=== PATIENT | male | born 1950 | race Caucasian/White ===

== ENCOUNTER 2019-05-29 06:12 | Inpatient (IN) ==
[~2019-05-29 06:12] MED LIST: Total Joint Mixture (50 ml) IR ONE
--- NOTE | 2019-05-29 06:27 | History & Physical Report ---
Date of Encounter: 05/29/19 Time of Encounter: 06:27 24 Hour HP Update - Instructions Instructions: If the History and Physical is less than 30 days old and was completed prior to A.M. admission and or procedure and has NOT been updated on calendar day of procedure please complete this update prior to performing procedure. - Update Patient reports changes in Medical Condition: No Changes in examination, assessment, or condition: No Changes in Medication: No Preop tests/diagnostics Reviewed: Yes Surgery Remains Indicated: Yes Consent for Planned Operative Procedure(s) Verified: Yes - Pre-Operative Checklist Preoperative Checklist Indicated: No Prophylactic Antibiotic Ordered: Yes Is VTE Prophylaxis Indicated?: Yes
[2019-05-29] MEDS ORDERED: CeFAZolin Syr 3,000MG/30 ML 3,000 MG/30 ML SYRINGE IVPB ONE (06:35)
[2019-05-29] MEDS ORDERED: Ringers Solution, Lactated 1,000 ML IVC SCH (06:45)
[2019-05-29] MEDS ORDERED: Propofol 500 MG/50 ML INFUS..BTL ONE ×3 (07:22→10:28)
[2019-05-29] MEDS ORDERED: Lidocaine -MPF 2% 2 ML VIAL ONE (07:22)
[2019-05-29] MEDS ORDERED: *HR* Propofol 200 MG/20 ML VIAL IVP ONE ×2 (07:22→09:29)
[2019-05-29] MEDS ORDERED: Tranexamic Acid 1,000 MG/10 ML VIAL ONE ×2 (07:22)
--- NOTE | 2019-05-29 07:23 | Anesthesia Evaluation PreOp ---
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], B-TKR, R-shoulder) Alcohol Use: none Drug use: none Medications and Allergies Aspirin [Lo-Dose Aspirin EC] 81 mg PO DAILY 05/29/19 [History] Levothyroxine Sodium [Euthyrox] 200 mcg PO DAILY 05/29/19 [History] Lisinopril [Zestril] 20 mg PO DAILY 05/29/19 [History] Omeprazole [PriLOSEC] 40 mg PO DAILY 05/29/19 [History] Tamsulosin [Flomax] 0.4 mg PO DAILY 05/29/19 [History] Allergy/AdvReac Type Severity Reaction Status Date / Time No Known Allergies Allergy Verified 05/29/19 06:59 - Meds/Allergy Pre-op Review Medications Reviewed: Yes Allergies Reviewed: Yes Beta Blockers on Current Med List: No Anesthesia Results - Labs Laboratory Tests 05/24/19 05/24/19 05/24/19 11:11 11:11 11:11 WBC 6.7 Hgb 15.5 Hct 48.5 Plt Count 241 PT 11.9 INR 1.0 APTT 35.4 Sodium 140 Potassium 4.2 Chloride 109 H Carbon Dioxide 25 BUN 20 Creatinine 0.82 Est GFR ( Amer) > 60 Est GFR (Non-Af Amer) > 60 BUN/Creatinine Ratio 24 Anesthesia Exam Last Vital Signs Temp 99.0 F 05/29/19 07:07 Pulse 82 05/29/19 07:07 Resp 18 05/29/19 07:07 BP 144/88 05/29/19 07:07 Pulse Ox 94 05/29/19 07:07 Weight: 131 kg NPO (# of Hours): > 8 hrs - HEENT Pupil (Motor): Pupils equal, EOMI Mallampati: III Teeth: Missing Denture Type: Lower: Complete Oral Opening: Greater than 3 - PERFORATOR OPERATOR OIL WELL LOC: Oriented - Cardiac Rhythm: Regular Murmur: None - Pulmonary Breath Sounds: bilateral Clear Respiratory Effort: Symmetrical Anesthesia Assess/Plan ASA Score: 3 Level of consciousness: Cooperative Anesthetic Plan: Regional Nerve Block, Spinal Regional Nerve Block Plan: Adductor canal (bilateral) Monitoring Plan: Standard Monitors Recovery Plan: PACU
[2019-05-29] MEDS ORDERED: *HR* Midazolam HCl 2 MG/2 ML VIAL ONE (07:26)
[2019-05-29] MEDS ORDERED: *HR* FentaNYL (PF) 100 MCG/2 ML VIAL ONE ×2 (07:27→10:58)
[2019-05-29] MEDS ORDERED: Lidocaine -MPF 1% 5 ML AMPUL ONE (07:34)
[2019-05-29] MEDS ORDERED: ROPIVACAINE/PF/NS 0.25% 1 EACH SYRINGE INTRAART ONE (07:38)
[2019-05-29] MEDS ORDERED: Lidocaine/EPI 1:200k 1% PF 10 ML VIAL ONE (07:38)
[2019-05-29] MEDS ORDERED: *HR* OxyCODONE ER (12 HR) 10 MG TABLET PO ONE (07:39)
[2019-05-29] MEDS ORDERED: Celecoxib 100 MG CAPSULE PO ONE (07:39)
[2019-05-29] MEDS ORDERED: Gabapentin 300 MG CAPSULE PO ONE (07:40)
[2019-05-29] MEDS ORDERED: *HR* Promethazine 25 MG/ML VIAL IVP PRN ×2 (07:49→12:49)
[2019-05-29] MEDS ORDERED: *HR* OxyCODONE Immed Rel 5 MG TABLET PO PRN (07:49)
[2019-05-29] MEDS ORDERED: Ketorolac 30 MG/ML VIAL ONE (08:58)
[2019-05-29] MEDS ORDERED: *HR* PHENYLEPHRINE 1,000 MCG/10 ML SYRINGE IVP ONE ×2 (09:08→10:58)
--- NOTE | 2019-05-29 09:25 | Discharge Summary ---
<Alex Siddiqui M - Last Filed: 05/29/19 09:21> Orders not resulted at time of discharge: Pending orders 05/29/19 09:11 Culture,Anaerobic [RM] Routine Culture,Wound [RM] Routine Gram Stain [RM] Stat Date of Encounter: 05/29/19 - Hospital Course Hospital course: Mr. Parker is a 68 year old male - Time Spent with Patient Total time spent providing and/or coordinating discharge services: - Discharge Medications Prescriptions: New Docusate [Colace] 100 mg PO BID 5 Days #10 capsule Ibuprofen [Motrin] 600 mg PO Q6HR PRN 7 Days #28 tab PRN Reason: Pain Acetaminophen [Pain Relief] 500 mg PO Q6H 7 Days #28 tablet OxyCODONE Immed Rel [Roxicodone 5 MG] 5 mg PO Q6HR PRN 5 Days #20 tablet PRN Reason: Severe Pain Aspirin Enteric Coated [Aspirin EC] 325 mg PO BID 10 Days #20 tablet. Continued Levothyroxine Sodium [Euthyrox] 200 mcg PO DAILY Omeprazole [PriLOSEC] 40 mg PO DAILY Lisinopril [Zestril] 20 mg PO DAILY Tamsulosin [Flomax] 0.4 mg PO DAILY Discontinued Aspirin [Lo-Dose Aspirin EC] 81 mg PO DAILY Home Medications: Acetaminophen [Pain Relief] 500 mg PO Q6H 7 Days #28 tablet 05/29/19 [Rx] Aspirin Enteric Coated [Aspirin EC] 325 mg PO BID 10 Days #20 tablet. 05/29/19 [Rx] Docusate [Colace] 100 mg PO BID 5 Days #10 capsule 05/29/19 [Rx] Ibuprofen [Motrin] 600 mg PO Q6HR PRN 7 Days #28 tab 05/29/19 [Rx] Levothyroxine Sodium [Euthyrox] 200 mcg PO DAILY 05/29/19 [History] Lisinopril [Zestril] 20 mg PO DAILY 05/29/19 [History] Omeprazole [PriLOSEC] 40 mg PO DAILY 05/29/19 [History] OxyCODONE Immed Rel [Roxicodone 5 MG] 5 mg PO Q6HR PRN 5 Days #20 tablet 05/29/19 [Rx] Tamsulosin [Flomax] 0.4 mg PO DAILY 05/29/19 [History] Allergies/Adverse Reactions: Allergy/AdvReac Type Severity Reaction Status Date / Time No Known Allergies Allergy Verified 05/29/19 06:59 Primary care physician: Garo Moreno MD - Patient Status Disposition: Transfer Inpatient Rehab Fac Condition: Good - Discharge Instructions Follow Up With: Garo Moreno MD [Primary Care Provider] - Additional Instructions: Discharge Instructions: Total Knee Replacement Please call [facility] ([phone]), your Primary Care Physician, or report to the Emergency Room if you have any of the following symptoms: Nausea, vomiting, fever greater that 101.5, swelling, chest pain, shortness of breath, increased pain/redness/drainage/odor for your incision site, numbness/tingling, or any other concerning symptoms. ACTIVITY:Weight-bearing as tolerated. You may progress off support (crutches or walker) as tolerated. Incentive Spirometer 10 times an hour. MEDICATIONS: Upon discharge resume your home medications. Take all the medica tions as prescribed. Take a stool softener if taking narcotic pain medications. Stool softeners are only effective if you drink enough fluids. Drink 6-8 glass of water or fluids a day, unless this is not allowed for another health problem. Despite using stool softeners, if you haven't had a bowel movement in 3 days, please switch to a gentle laxative. Gentle laxatives are sold over the counter. You should have a bowel movement within 24 hours, if not call the office. You will be discharged from the hospital with a prescription for pain medication. You are encouraged to decrease the use of narcotic pain medication as tolerated. Should you require a refill, please call the office. [facility] prescribes narcotic pain medication for only 4-6 weeks after surgery. If you require pain medication beyond this time period, you may be referred to your Primary Care Physician or to the Pain Clinic for further evaluation. Plan ahead for refills on pain medication as many narcotics either need to be picked up at the office or mailed. It is best to call 48-72 hours in advance of needing a prescription refill so you don't run out of medication. To help control the post-operative pain, you may take NSAIDs (Aleve,Advil, Motrin, Ibuprofen, Naprosyn) or Tylenol as prescribed on the bottle in addition to the pain medication. ANTICOAGULATION (blood thinners): Continue your Aspirin, Lovenox or Coumadin as prescribed to help prevent a blood clot in the leg or in the lungs. As long as your incision remains dry and you tolerate the NSAIDs (Aleve, Advil, Motrin, ibuprofen, naprosyn), it is OK to use the NSAIDS while you are taking your anticoagulation medication. Should your incision start to drain, stop the NSAID and contact our office. Common symptoms of blood clot in the legs include: localized pain, swelling, calf tenderness, redness or discoloration of the skin. Blood clot in the lung symptoms include: shortness of breath, rapid pulse, sweating, and chest pain that worsens with deep breathing, coughing up blood, lightheadedness, feelings of anxiety. If you experience any of these symptoms notify your physician immediately, go to the emergency room, or if having trouble breathing, call 911. WOUND CARE: Leave the dressing on for 7 to 10days. You may change the dressing if it becomes saturated greater than 50%. Do not get the dressing wet at anytime. Wash your hands with antibacterial soap, rinse and dry prior to any wound care. If you have hal the visiting nurse or rehab facility can remove the stapes 10-14 days after surgery and place steri-strips across the wound. Leave the steri-strips in place until they fall off on their won. You may let water from the shower run on top of the steri-strips. If you do not have a visiting nurse or rehab facility, you will need to return to the office at 10-14 days for the hal to be removed. If you have itching or redness around the dressing call the office. FOLLOW-UP: Please follow up with your surgeon in the orthopedic clinic in 4 weeks from the day of surgery. If you have hal that need to be removed, you will need to come back to the office in 10-14 days from the day of surgery. 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 Priority: Primary Status: Acute (3) HTN (hypertension) Priority: Secondary Status: Chronic Qualifiers: Hypertension type: unspecified Qualified Code(s): I10 - Essential (primary) hypertension (4) History of CVA (cerebrovascular accident) Priority: Secondary Status: Chronic (5) 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 Parker is a 68 year old male status post bilateral total knee replacement. Patient had an uneventful postoperative course, received antibiotics physical therapy, patient will require inpatient stay for a period of time and rehabilitation facility. Follow-up in 1 week Time spent discussing smoking cessation with patient: 3 to 10 minutes - Time Spent with Patient Total time spent providing and/or coordinating discharge services: Date of admission: 05/29/19 12:42 Primary care physician: Garo Moreno MD Consults: 05/29/19 12:49 Consult to Nutrition [CONS] Routine Comment: Consulting Provider: NUTRITION Reason for Dietary Consult: Other Other:: Proper nutrition to facilitate wound healing Consult to Occupational Therapy [CONS] Routine Comment: Evaluate, develop and implement POC Reason for Consult: post knee surgery Does patient have active BEDREST order?: No Is patient medically & hemodynamically stable?: Yes Consult to Orthopedic Navigator [CONS] [CONS] Routine Consult to Physical Therapy [CONS] Routine Comment: Evaluate, develop and impliment POC Reason for Consult: post knee surgery Does patient have active BEDREST order?: No Is patient medically & hemodynamically stable?: Yes Consult to Quality Control Head [CONS] Routine Reason for SW Consult: post op joint replacement RT Post Op Consult [CONS] Routine Labs on day of discharge: Labs from last 24 hours 05/30/19 05/30/19 05/29/19 04:16 04:16 12:05 WBC 9.2 RBC 4.36 Hgb 12.6 L 13.2 D Hct 40.3 41.0 MCV 92.4 MCH 28.9 MCHC 31.3 L RDW 14.5 Plt Count 194 MPV 9.8 Immature Gran % 0.3 Seg Neutrophils % 75.5 Lymphocytes % 10.6 Monocytes % 12.3 Eosinophils % 0.9 Basophils % 0.4 Neutrophils # 7.0 Lymphocytes # 1.0 Monocytes # 1.1 Eosinophils # 0.1 Basophils # 0.0 Sodium 142 Potassium 4.3 Chloride 108 H Carbon Dioxide 25 BUN 24 H Creatinine 0.94 Est GFR ( Amer) > 60 Est GFR (Non-Af Amer) > 60 BUN/Creatinine Ratio 26 Glucose 126 H Calculated Osmolality 300 Calcium 8.3 L Preliminary micro results at discharge 05/29/19 10:45 Anaerobic Culture - Preliminary Right Knee Culture is incubating. 05/29/19 Unknown Anaerobic Culture - Preliminary Left Knee Culture is incubating. 05/29/19 10:45 Wound Culture - Preliminary Right Knee Culture is incubating. 05/29/19 Unknown Wound Culture - Preliminary Left Knee Culture is incubating. - Impressions ITS Impressions Knee X-Ray 05/29/19 01:00 IMPRESSION: Insertion of right knee revision arthroplasty D/ / Jason Garza MD / Jason Garza MD Interpreting Provider: Jason Garza MD - Patient Status Functional capacity at discharge: uses cane/walker <Lillie Posada E - Last Filed: 06/02/19 18:36> Orders not resulted at time of discharge: Pending orders 05/29/19 Culture,Anaerobic [RM] Routine Culture,Wound [RM] Routine Gram Stain [RM] Stat 05/29/19 10:45 Culture,Anaerobic [RM] Routine Culture,Wound [RM] Routine Gram Stain [RM] Stat 05/29/19 11:02 Surgical Pathology [PTH] Routine Date of Encounter: 06/01/19 - Discharge Diagnosis (1) 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 Priority: Primary Status: Chronic Qualifiers: Encounter type: subsequent encounter Qualified Code(s): T84.032D - Mechanical loosening of internal right knee prosthetic joint, subsequent encounter; T84.033D - Mechanical loosening of internal left knee prosthetic joint, subsequent encounter (2) 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 Priority: Primary Status: Acute (3) HTN (hypertension) Priority: Secondary Status: Chronic Qualifiers: Hypertension type: unspecified Qualified Code(s): I10 - Essential (primary) hypertension (4) History of CVA (cerebrovascular accident) Priority: Secondary Status: Chronic (5) ISSAC (obstructive sleep apnea) Priority: Secondary Status: Chronic (6) Obesity Priority: Secondary Status: Chronic Qualifiers: Obesity type: unspecified obesity type Obesity classification: unspecified obesity classification Serious obesity comorbidity presence: unspecified whether serious comorbidity present Qualified Code(s): E66.9 - Obesity, unspecified (7) Thyroid disorder Priority: Secondary Status: Chronic (8) Hypothyroidism Priority: Secondary Status: Chronic Qualifiers: Hypothyroidism type: unspecified Qualified Code(s): E03.9 - Hypothyroidism, unspecified - Hospital Course Hospital course: Mr. Parker is a 68 year old male - Time Spent with Patient Total time spent providing and/or coordinating discharge services: Date of admission: 05/29/19 12:42 Primary care physician: Garo Moreno MD Consults: 05/29/19 12:49 Consult to Nutrition [CONS] Routine Comment: Consulting Provider: NUTRITION Reason for Dietary Consult: Other Other:: Proper nutrition to facilitate wound healing Consult to Occupational Therapy [CONS] Routine Comment: Evaluate, develop and implement POC Reason for Consult: post knee surgery Does patient have active BEDREST order?: No Is patient medically & hemodynamically stable?: Yes Consult to Orthopedic Navigator [CONS] [CONS] Routine Consult to Physical Therapy [CONS] Routine Comment: Evaluate, develop and impliment POC Reason for Consult: post knee surgery Does patient have active BEDREST order?: No Is patient medically & hemodynamically stable?: Yes Consult to Quality Control Head [CONS] Routine Reason for SW Consult: post op joint replacement RT Post Op Consult [CONS] Routine Discharging clinician: Hi Randolph Anticipated date of discharge: 06/01/19 - VTE Documentation of Mechanical Device: Venous foot pump, device Labs on day of discharge: Labs from last 24 hours 05/29/19 12:05 Hgb 13.2 D Hct 41.0 Preliminary micro results at discharge 05/29/19 10:45 Wound Culture - Preliminary Right Knee Culture is incubating. 05/29/19 Unknown Wound Culture - Preliminary Left Knee Culture is incubating. - Impressions ITS Impressions Knee X-Ray 05/29/19 01:00 IMPRESSION: Insertion of right knee revision arthroplasty D/ / Jason Garza MD / Jason Garza MD Interpreting Provider: Jason Garza MD - Patient Status Functional capacity at discharge: uses cane/walker Overall status at discharge: patient is progressing back to baseline - Diet and Activity Activity: as per physical therapy Diet: advance to your usual diet
[2019-05-29] MEDS ORDERED: EPHEDrine 50 MG/ML VIAL ONE (09:39)
--- NOTE | 2019-05-29 09:41 | Anesthesia Procedures ---
Date of Encounter: 05/29/19 Time of Encounter: 08:15 Procedures: Anesthesia - Epidural/Spinal Patient ID/Chart reviewed: Yes Patient examined: Yes Consent Obtained: Yes Supplemental Oxygen: Nasal Cannula Supplemental Oxygen Rate (L/min): 2 Sedation: Versed (mg): 2 Sedation: Fentanyl (mcg): 100 Site Prep: Aseptic Technique, Sterile prep and drape, Povidone-Iodine 1% Patient position: upright Local Anesthetic: Lidocaine 1% Amount of Local Anesthetic used: 3 Interspace Used: L4-L5 Blood: No CSF: Yes (spinal ) Paresthesia: No Spinal Needle Gauge: 22 (PARAMEDIAN APPROACH WITH A 22G 5 INCH NEEDLE) Spinal Dose: BUPIVICAINE 0.5% PF -WITH EPI WASH FOR BILATERAL Vitals + FHT's: Vital Signs - Last 8 Hours Temp Pulse Resp BP Pulse Ox 05/29/19 08:40 77 15 109/62 92 05/29/19 08:37 76 15 107/73 91 05/29/19 08:23 79 15 149/100 91 05/29/19 08:11 90 15 133/100 92 05/29/19 07:07 99.0 F 82 18 144/88 94 Intake and Output 05/28/19 05/29/19 05/29/19 23:59 07:59 15:59 Other: Weight 130.635 kg Patient Weight 05/29/19 23:59 Weight 130.635 kg - Nerve Block Procedure Date: 05/29/19 Time: 08:15 Allergies/Adv Reactions: NKDA Pre-op Diagnosis: BILATERAL TOTAL KNEE ARTHRITIS ROBOTIC BIlateral Surgical Procedure: BILATERAL TOTAL KNEE ROBOTIC BILATERAL Checklist: Correct Patient Identifier, Correct procedure, History checked Blood Thinner: No Monitor Applied: EKG, BP, Pulse Oximetry Supplemental Oxygen via Nasal Cannula (L/min): 2 Sedation: Versed (mg): 2 Sedation: Fentanyl (mcg): 100 Indication: Post Op Analgesia Pre-op Neuro Deficits: No Block Type: Other (adductor canal x2) Catheter placed: No Sterile Technique: Yes Ultrasound used: Yes Anatomy identified: Yes Visual spread of Local: Yes Neuro Stimulation: No Blood on Needle Aspiration: No Smooth Injection of Local: Yes Pain with Injection of Local: No Prep: Chlorhexadine Needle: 21 x 100 mm Stimuplex Local: Ropivacaine (0.25% 20ml X2 ropi bilateral ) Volume (cc): 40 Number of Attempts: 1 Complications: None/effective block Vitals: Vital Signs - Last 8 Hours Temp Pulse Resp BP Pulse Ox 05/29/19 08:40 77 15 109/62 92 05/29/19 08:37 76 15 107/73 91 05/29/19 08:23 79 15 149/100 91 05/29/19 08:11 90 15 133/100 92 05/29/19 07:07 99.0 F 82 18 144/88 94 Intake and Output 05/28/19 05/29/19 05/29/19 23:59 07:59 15:59 Other: Weight 130.635 kg Patient Weight 05/29/19 23:59 Weight 130.635 kg
--- NOTE | 2019-05-29 11:12 | Orthopedic Operative Note ---
Date of procedure: 05/29/19 Pre-op diagnosis: Bilateral aseptic loosening total knee Post-op diagnosis: same Procedure: Procedure: Bilateral revision robotic-assisted Total knee replacement Estimated blood loss: 400 cc Hardware: Metal and polyethylene replacement. [place] Femur: Both knees 5 TS, 22 x 100 stem's Tibia: Both knees, 5, 18 x 100 stem's TS insert: Left knee 25 mm, right knee 19 mm Patella: Left knee patella not replaced, right knee 39 patella revision Exam Under anesthesia: Right knee 0 degrees of extension 5 degrees varus, left knee 0 degrees flexion extension, 1 degree varus as calculated by the robot full flexion and no instability Procedural Notes: Both knees aseptic loosening of tibial and femoral components, significantly more cement disease on the left knee as compared to the right. Operative procedure: The patient was brought to the operating room and placed on the operating room table. After spinal anesthesia was administered the operative knee was examined. Findings were noted in the exam under anesthesia. The operative extremity was prepped and draped in sterile surgical fashion. Surgery began with the left knee, the right knee any differences will be highlighted but this will be dictation for both knees. The patient received IV antibiotics prior to skin incision. A standard midline incision was made centered over the patella through the old incision. The incision was made through the skin and subcutaneous tissue. A medial parapatellar tendon approach was performed. Care was taken to preserve tissue along the medial aspect of the patella. And to protect the patella tendon. Normal joint fluid and was enc ountered in both knees, cultures and Gram stain was sent for both knees. The deep MCL was released off the medial tibia. The infra patella fat pad was excised. The patella was everted on the left knee the patella had no issues, there was some concern with the position of the patella on the right knee. For the right knee patella cut was made at the level of the insertion of the quadriceps and patella tendon along the implant, implant was removed without incident. The patella was sized the guide was seated and the lug holes are drilled. Knee was brought into flexion. Patient noted to have Steinmann pins were placed in the tibia and the femur for the tibial and femoral arrays respectively. Checkpoints were also placed in the tibia and the femur for calculation purposes. The knee including the femur and the tibial registered. Utilizing an osteotome and oscillating saw the interface between the patient's bone and component was disrupted and the femoral and tibial components were removed without significant incident, components were loose in both knees. Femoral cuts were made first with robotic assistance, these included the anterior cut posterior cuts chamfer cuts. Tibial cut was then performed with robotic assistance as well. Bone fragments were removed, as well as the medial and lateral meniscus. The size 5 femoral guide was seated box cut was made lug holes are drilled. The size 5 tibial tray was seated and prepared with the fin cutter. Trial reduction with the 25 TS on left knee 19 TS Melissa revealed extension of 0 degrees in both knees and a varus alignment 4 degrees in the left and 1 degree in the right full flexion. No varus valgus instability. Trial reduction revealed excellent patella tracking. All trial components were removed all bony surfaces were irrigated. Components were assembled on the back table after the tibia and femur reamed up to the appropriate sizes. The Tibia was seated followed by the femur, The selected Melissa size was seated and secured patella was cemented on the right knee. Patient had similar findings for motion and stability. The knee was closed by the PA. The knee was then irrigated out with 2 L of pulse irrigation. The extensor mechanism was closed with #2 FiberWire suture and #2 PDS suture. The subcutaneous tissue was then irrigated and closed deep with #1 PDS suture superficially with 0 PDS suture and skin was closed with zip tie skin hal. The patient was placed in a sterile dressing and transferred to recovery room in stable condition. Anesthesia: spinal Surgeon: Hi Randolph Was there an laundry assistant present: Yes Certified Medical Dosimetrist: Lillie Posada Estimated blood loss (cc): 400 Condition: stable Disposition: PACU
[2019-05-29 12:30] LABS: Hemoglobin 13.2 g/dL (12.9-16.9)
--- NOTE | 2019-05-29 12:30 | Anesthesia Evaluation Post Op ---
Date of Encounter: 05/29/19 Time of Encounter: 12:29 - Vital Signs Vital Signs: Last Vital Signs Temp 97.4 F L 05/29/19 12:17 Pulse 84 05/29/19 12:17 Resp 19 05/29/19 12:17 BP 105/70 05/29/19 12:17 Pulse Ox 96 05/29/19 12:17 - Lungs Lungs: Clear Ascult./Percussion - Airway Airway: Non-obstructed - Cardiovascular Regular Rate - Mental Status Mental Status: Alert & Oriented, Answers Appropriately - Pain Pain Scale: 1 - Nausea Vomiting Nausea Vomiting: Not Present - Hydration Hydration: NPO - Discharge PostOp Status: Transfer Patient to floor
[2019-05-29] MEDS ORDERED: Ondansetron 4 MG/2 ML VIAL IVP PRN (12:49)
[2019-05-29] MEDS ORDERED: HYDROcodone BIT/Homatropine 5 MG TABLET PO PRN (12:49)
[2019-05-29] MEDS ORDERED: Sennosides 8.6 MG TABLET PO PRN (12:49)
[2019-05-29] MEDS ORDERED: Temazepam 15 MG CAPSULE PO PRN (12:49)
[2019-05-29] MEDS ORDERED: Naloxone 0.4 MG/ML INJ IVP PRN (12:49)
[2019-05-29] MEDS ORDERED: MOM Conc 10 ML UD.LIQ PO PRN (12:49)
[2019-05-29] MEDS ORDERED: traMADol 50 MG TABLET PO PRN (12:49)
[2019-05-29] MEDS: *HR* OxyCODONE Immed Rel 5 MG TABLET PO PRN (13:29)
[2019-05-29] MEDS: Aspirin Enteric Coated 81 MG Tablet PO SCH (13:29)
[2019-05-29] MEDS: Lisinopril 20 MG TABLET PO SCH (13:30)
[2019-05-29] MEDS: ceFAZolin sodium 3,000 MG in 0.9 % Sodium Chloride 100 ML IVPB SCH (17:08)
[2019-05-29] MEDS: Gabapentin 300 MG CAPSULE PO SCH ×2 (17:09→22:04)
[2019-05-29] MEDS: Ascorbic Acid 500 MG TABLET PO SCH (17:10)
[2019-05-29] MEDS: *HR* Enoxaparin 30 MG/0.3 ML SYRINGE SQ SCH (17:12)
[2019-05-29] MEDS ORDERED: *HR* Enoxaparin 30 MG/0.3 ML SYRINGE SQ SCH (18:00)
[2019-05-30] MEDS: ceFAZolin sodium 3,000 MG in 0.9 % Sodium Chloride 100 ML IVPB SCH (01:40)
[2019-05-30 04:57] LABS: Basophils % 0.4 %; Eosinophils # 0.1 K/mcL (0.0-0.6); Eosinophils % 0.9 %; Hematocrit 40.3 % (37.5-50.1); Hemoglobin 12.6 g/dL (12.9-16.9); Immature Granulocytes % 0.3 % (0-4); Lymphocytes % 10.6 %; Mean Corpuscular HGB Conc 31.3 g/dL (31.6-35.5); Mean Corpuscular Hemoglobin 28.9 pg (28.0-33.3); Mean Corpuscular Volume 92.4 fL (83.0-100.0); Mean Platelet Volume 9.8 fL (9.4-12.4); Monocytes # 1.1 K/mcL (0.0-1.3); Monocytes % 12.3 %; Platelet Count 194 K/mcL (140-400); Red Blood Count 4.36 M/mcL (4.19-5.50); Red Cell Distribution Width 14.5 % (11.5-14.5); Segmented Neutrophils % 75.5 %; White Blood Count 9.2 K/mcL (4.3-11.1)
[2019-05-30 05:19] LABS: BUN/Creatinine Ratio 26 (6-26); Blood Urea Nitrogen 24 mg/dL (8-23); Calcium 8.3 mg/dL (8.6-10.3); Carbon Dioxide 25 mEq/L (23-29); Chloride 108 mEq/L (98-107); Glucose 126 mg/dL (70-105); Osmolality,Calculated 300 (280-300); Potassium 4.3 mEq/L (3.5-5.1); Sodium 142 mEq/L (136-145); eGFR For African Americans > 60 (> 60); eGFR For Non-African Americans > 60 (> 60)
[2019-05-30] MEDS: *HR* Enoxaparin 30 MG/0.3 ML SYRINGE SQ SCH ×2 (05:44→17:18)
[2019-05-30] MEDS: Lisinopril 20 MG TABLET PO SCH (07:34)
[2019-05-30] MEDS: Aspirin Enteric Coated 81 MG Tablet PO SCH (07:35)
[2019-05-30] MEDS: Ascorbic Acid 500 MG TABLET PO SCH ×2 (07:35→15:55)
[2019-05-30] MEDS: Multivit/Ca/Min/Fe/FA 1 TAB TABLET PO SCH (07:35)
[2019-05-30] MEDS: Gabapentin 300 MG CAPSULE PO SCH ×3 (07:35→20:37)
--- NOTE | 2019-05-30 07:48 | Orthopedics Progress Note ---
Date of Encounter: 05/30/19 Time of Encounter: 07:48 Subjective Interval history: Patient was seen this morning doing well without complaints. Afebrile vital signs stable. Operative extremity: Neurovascularly intact Dressing clean dry and intact Calves nontender Assessment and plan: Continue with postoperative care Objective Vital signs: Vital Signs Temp Pulse Resp BP Pulse Ox 05/30/19 06:35 98.5 F 86 20 147/79 92 05/30/19 05:41 98.4 F 85 20 135/81 91 05/29/19 22:19 97.4 F L 75 20 114/71 94 05/29/19 14:49 98.7 F 79 16 129/74 96 05/29/19 12:45 98.9 F 84 16 127/81 97 05/29/19 12:27 97.4 F L 84 17 115/74 96 05/29/19 12:17 97.4 F L 84 19 105/70 96 05/29/19 12:07 85 20 112/77 97 05/29/19 11:57 85 17 115/72 97 05/29/19 11:47 99.6 F 86 20 100/70 90 05/29/19 08:40 77 15 109/62 92 05/29/19 08:37 76 15 107/73 91 05/29/19 08:23 79 15 149/100 91 05/29/19 08:11 90 15 133/100 92 Intake and Output 05/29/19 05/29/19 05/30/19 15:59 23:59 07:59 Intake Total 30 / 230 200 / 230 100 / 100 Output Total 400 / 400 200 / 200 Balance -370 / -170 200 / -170 -100 / -100 Intake: IV Fluids 30 / 130 100 / 130 Ancef Syringe 3,000 MG/30 ML 3, 30 / 30 000 mg In 30 ml @ 200 mls/hr IVPB PREOP ONE Rx#:[id number] Ancef 3,000 MG In 0.9 % Sodium 100 / 100 Chloride 100 ML @ 200 mls/hr IVPB Q8HR ERNESTO Rx#:[id number] Oral 100 / 100 100 / 100 Output: Urine 200 / 200 Estimated Blood Loss 400 / 400 - Labs CBC & BMP: 05/30/19 04:16 05/30/19 04:16 Labs: Abnormal lab results Hgb 12.6 g/dL (12.9-16.9) L 05/30/19 04:16 MCHC 31.3 g/dL (31.6-35.5) L 05/30/19 04:16 Chloride 108 mEq/L (98-107) H 05/30/19 04:16 BUN 24 mg/dL (8-23) H 05/30/19 04:16 Glucose 126 mg/dL (70-105) H 05/30/19 04:16 Calcium 8.3 mg/dL (8.6-10.3) L 05/30/19 04:16 - VTE Documentation of Mechanical Device: Venous foot pump, device Consult Discharge Plan - Plan Referrals: Garo Moreno MD [Primary Care Provider] - Prescriptions: Aspirin Enteric Coated [Aspirin EC] 325 mg PO BID 10 Days #20 tablet.
[2019-05-30] MEDS: *HR* OxyCODONE Immed Rel 5 MG TABLET PO PRN (11:07)
--- NOTE | 2019-05-30 12:10 | Physician Discharge Referral ---
ExtendedCare Referral Info Transfer To: [facility] Provider in Charge: Dr. 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 Home Medications: Acetaminophen [Pain Relief] 500 mg PO Q6H 7 Days #28 tablet 05/29/19 [Rx] Aspirin Enteric Coated [Aspirin EC] 325 mg PO BID 10 Days #20 tablet. 05/29/19 [Rx] Docusate [Colace] 100 mg PO BID 5 Days #10 capsule 05/29/19 [Rx] Ibuprofen [Motrin] 600 mg PO Q6HR PRN 7 Days #28 tab 05/29/19 [Rx] Levothyroxine Sodium [Euthyrox] 200 mcg PO DAILY 05/29/19 [History] Lisinopril [Zestril] 20 mg PO DAILY 05/29/19 [History] Omeprazole [PriLOSEC] 40 mg PO DAILY 05/29/19 [History] OxyCODONE Immed Rel [Roxicodone 5 MG] 5 mg PO Q6HR PRN 5 Days #20 tablet 05/29/19 [Rx] Tamsulosin [Flomax] 0.4 mg PO DAILY 05/29/19 [History] Allergies/Adverse Reactions: Allergy/AdvReac Type Severity Reaction Status Date / Time No Known Allergies Allergy Verified 05/29/19 06:59 - Respiratory Orders Smoking Cessation: Smoking cessation has been advised. For more information, call the [place] Tobacco Quit Line at 3-171-RNSP-NOW. - Ancillary Orders May use pressure relief devices daily prn, May go on BRANDYN w/family/respon democrat w/meds at nurse discretion PRN, May consult with Dentist, Iron Guardrail Installer, Silo Painter PRN - Mobility Orders Chair, Ambulate - Rehabiliation Orders Rehab Potential: Good Rehab Orders: Evaluation for Physical Therapy, Evaluation for Occupational Therapy Other: Total Knee replacement Precautions x 6 weeks Apply cold therapy wrap 3-6x/day for 20 minutes at a time. Encourage ambulation throughout the day and incentive spirometer 10x/hour. Elevate affected extremity above heart as tolerated. Brace: Wear knee immobilizer at night x 2 weeks. Opsite placed. Keep dressing intact until first follow up appointment. If greater than 50% saturated, notify office, remove dressing and place appropriate dressing back in place. Leave Zipline intact. Opsite dressing is water resistant, not water-proof. OK to shower, but do not get dressing wet. - Treatments Skin tear care topically daily PRN per policy - Diet Orders Regular CERTIFICATION: I certify that the transfer of the above named patient to an Extended Care Facility is necessary for the continuing treatment of the diagnosis listed. The above information is true and accurate reflection of patient's current condition. Confidential - Redisclosure prohibited without a patient's written consent.
--- NOTE | 2019-05-30 12:10 | Event Note ---
Date of Encounter: 05/30/19 Time of Encounter: 12:45 POD#1 s/p Bilateral revision robotic-assisted Total knee replacement [ Bilateral aseptic loosening total knee] 05/29/19 Patient seen at bedside. A&Ox3 Dressing and incision c/d/i No calf tenderness, erythema, or warmth. Neurovascularly intact b/l LE. Labwork, vitals, and medications reviewed. Pain control: Adequate Participating in therapy. All questions and concerns addressed. Educated on use of incentive spirometer, ambulation, and hydration. Patient educated on post-operative restrictions and care. Addressed: patient very concerned about his "weakness" perceived to his left leg. He states that he has had trouble with this leg more severely for the past 7 months and he is concerned about it needing a manipulation. We discussed that his is POD#1 and will be going to inpatient rehab to perform rehabiliation as well as continued therapy thereafter. Patient is encouraged to do bed exercises when he is not up with a staff member. Patient course and disposition discussed with Dr. Randolph D/C plan: Ashanti Vaughn Friday 06/01.
[2019-05-31 05:15] LABS: Basophils # 0.1 K/mcL (0.0-0.2); Basophils % 0.6 %; Eosinophils # 0.5 K/mcL (0.0-0.6); Eosinophils % 4.9 %; Hematocrit 39.4 % (37.5-50.1); Hemoglobin 12.3 g/dL (12.9-16.9); Immature Granulocytes % 0.3 % (0-4); Lymphocytes # 1.1 K/mcL (0.6-4.6); Lymphocytes % 11.3 %; Mean Corpuscular HGB Conc 31.2 g/dL (31.6-35.5); Mean Corpuscular Hemoglobin 28.8 pg (28.0-33.3); Mean Corpuscular Volume 92.3 fL (83.0-100.0); Mean Platelet Volume 10.2 fL (9.4-12.4); Monocytes # 1.2 K/mcL (0.0-1.3); Monocytes % 12.1 %; Neutrophils # 7.2 K/mcL (1.6-8.9); Platelet Count 194 K/mcL (140-400); Red Blood Count 4.27 M/mcL (4.19-5.50); Red Cell Distribution Width 14.8 % (11.5-14.5); Segmented Neutrophils % 70.8 %; White Blood Count 10.1 K/mcL (4.3-11.1)
[2019-05-31 05:34] LABS: BUN/Creatinine Ratio 27 (6-26); Blood Urea Nitrogen 26 mg/dL (8-23); Calcium 8.6 mg/dL (8.6-10.3); Carbon Dioxide 28 mEq/L (23-29); Chloride 108 mEq/L (98-107); Glucose 111 mg/dL (70-105); Osmolality,Calculated 299 (280-300); Potassium 4.2 mEq/L (3.5-5.1); Sodium 142 mEq/L (136-145); eGFR For African Americans > 60 (> 60); eGFR For Non-African Americans > 60 (> 60)
[2019-05-31] MEDS: *HR* Enoxaparin 30 MG/0.3 ML SYRINGE SQ SCH ×2 (05:56→18:01)
--- NOTE | 2019-05-31 08:15 | Orthopedics Progress Note ---
Date of Encounter: 05/31/19 Time of Encounter: 08:14 - Assessment and Plan (1) Obesity (BMI 30.0-34.9) Current Visit: Yes Status: Chronic Subjective Interval history: Patient was seen this morning doing well without complaints. Afebrile vital signs stable. Operative extremity: Neurovascularly intact Dressing clean dry and intact Calves nontender Assessment and plan: Continue with postoperative care Plan for discharge tomorrow Objective Vital signs: Vital Signs Temp Pulse Resp BP Pulse Ox 05/31/19 06:56 98.4 F 88 17 114/70 96 05/31/19 04:51 98 F 83 15 107/72 92 05/30/19 23:48 97.6 F 78 18 106/71 92 05/30/19 19:21 97.7 F 70 17 138/82 92 05/30/19 15:03 98.0 F 87 17 118/75 90 05/30/19 11:08 98.7 F 72 18 130/78 94 Intake and Output 05/30/19 05/31/19 05/31/19 23:59 07:59 15:59 Intake Total 150 / 150 Output Total 150 / 650 200 / 200 Balance -150 / -160 -50 / -50 Intake: Oral 150 / 150 Output: Urine 150 / 650 200 / 200 Other: Meal Dinner Percent of Meal Consumed 0% - Labs CBC & BMP: 05/31/19 04:37 05/31/19 04:37 Labs: Abnormal lab results Hgb 12.3 g/dL (12.9-16.9) L 05/31/19 04:37 MCHC 31.2 g/dL (31.6-35.5) L 05/31/19 04:37 RDW 14.8 % (11.5-14.5) H 05/31/19 04:37 Chloride 108 mEq/L (98-107) H 05/31/19 04:37 BUN 26 mg/dL (8-23) H 05/31/19 04:37 BUN/Creatinine Ratio 27 (6-26) H 05/31/19 04:37 Glucose 111 mg/dL (70-105) H 05/31/19 04:37 Calcium 8.3 mg/dL (8.6-10.3) L 05/30/19 04:16 - VTE Documentation of Mechanical Device: Venous foot pump, device Consult Discharge Plan - Plan Referrals: Garo Moreno MD [Primary Care Provider] - Prescriptions: Aspirin Enteric Coated [Aspirin EC] 325 mg PO BID 10 Days #20 tablet.
[2019-05-31] MEDS: *HR* OxyCODONE Immed Rel 5 MG TABLET PO PRN (08:22)
[2019-05-31] MEDS: Lisinopril 20 MG TABLET PO SCH (10:04)
[2019-05-31] MEDS: Ascorbic Acid 500 MG TABLET PO SCH ×2 (10:04→17:12)
[2019-05-31] MEDS: Gabapentin 300 MG CAPSULE PO SCH ×3 (10:04→19:52)
[2019-05-31] MEDS: Aspirin Enteric Coated 81 MG Tablet PO SCH (10:04)
[2019-05-31] MEDS: Multivit/Ca/Min/Fe/FA 1 TAB TABLET PO SCH (10:05)
--- NOTE | 2019-05-31 11:53 | Event Note ---
Date of Encounter: 05/31/19 Time of Encounter: 12:42 Bilateral revision robotic-assisted Total knee replacement [Bilateral aseptic loosening total knee] 05/29/19 Patient seen at bedside. A&Ox3 Dressing and incision c/d/i No calf tenderness, erythema, or warmth. Neurovascularly intact b/l LE. Labwork, vitals, and medications reviewed. Pain control: Adequate Participating in therapy. All questions and concerns addressed. Educated on use of incentive spirometer, ambulation, and hydration. Patient educated on post-operative restrictions and care. Addressed: Patient concerned re: right knee being less painful than his left. He relates his left leg has been weak for 7 months. Patient was encouraged that it is unlikely to be back to "normal" overnight after a knee revision. Patient verbalized understanding that recovery will take time and therapy. Patient course and disposition discussed with Dr. Randolph D/C plan: Ashanti BLAIR tomorrow, 06/01
[2019-05-31] MEDS: Ringers Solution, Lactated 1,000 ML IVC SCH ×2 (19:38→19:39)
[2019-06-01] MEDS: *HR* Enoxaparin 30 MG/0.3 ML SYRINGE SQ SCH (05:38)
--- NOTE | 2019-06-01 06:53 | Orthopedics Progress Note ---
Date of Encounter: 06/01/19 Time of Encounter: 06:53 - Assessment and Plan (1) Obesity (BMI 30.0-34.9) Current Visit: Yes Status: Chronic Subjective Interval history: Patient was seen this morning doing well without complaints. Afebrile vital signs stable. Operative extremity: Neurovascularly intact Dressing clean dry and intact Calves nontender Assessment and plan: Continue with postoperative care Plan for discharge today Objective Vital signs: Vital Signs Temp Pulse Resp BP Pulse Ox 06/01/19 00:45 98.3 F 82 16 107/68 93 05/31/19 20:27 93 05/31/19 19:00 98.1 F 89 17 112/68 93 05/31/19 16:14 97.9 F 89 20 103/60 91 05/31/19 11:48 98.4 F 83 17 136/86 93 05/31/19 06:56 98.4 F 88 17 114/70 96 Intake and Output 05/31/19 05/31/19 06/01/19 15:59 23:59 07:59 Intake Total 440 / 690 100 / 690 Output Total 300 / 900 400 / 900 250 / 250 Balance 140 / -210 -300 / -210 -250 / -250 Intake: Oral 440 / 690 100 / 690 Output: Urine 300 / 900 400 / 900 250 / 250 Other: Meal Lunch Percent of Meal Consumed 100% Weight 130.7 kg Patient Weight 06/01/19 23:59 Weight 130.7 kg - Labs CBC & BMP: 05/31/19 04:37 05/31/19 04:37 Labs: Abnormal lab results Hgb 12.3 g/dL (12.9-16.9) L 05/31/19 04:37 MCHC 31.2 g/dL (31.6-35.5) L 05/31/19 04:37 RDW 14.8 % (11.5-14.5) H 05/31/19 04:37 Chloride 108 mEq/L (98-107) H 05/31/19 04:37 BUN 26 mg/dL (8-23) H 05/31/19 04:37 BUN/Creatinine Ratio 27 (6-26) H 05/31/19 04:37 Glucose 111 mg/dL (70-105) H 05/31/19 04:37 Calcium 8.3 mg/dL (8.6-10.3) L 05/30/19 04:16 - VTE Documentation of Mechanical Device: Venous foot pump, device Consult Discharge Plan - Plan Referrals: Garo Moreno MD [Primary Care Provider] - Prescriptions: Aspirin Enteric Coated [Aspirin EC] 325 mg PO BID 10 Days #20 tablet.
[2019-06-01 07:33] LABS: Basophils # 0.1 K/mcL (0.0-0.2); Basophils % 0.6 %; Eosinophils # 0.5 K/mcL (0.0-0.6); Eosinophils % 6.4 %; Hematocrit 39.5 % (37.5-50.1); Hemoglobin 12.1 g/dL (12.9-16.9); Immature Granulocytes % 0.4 % (0-4); Lymphocytes # 1.2 K/mcL (0.6-4.6); Lymphocytes % 13.7 %; Mean Corpuscular HGB Conc 30.6 g/dL (31.6-35.5); Mean Corpuscular Hemoglobin 28.7 pg (28.0-33.3); Mean Corpuscular Volume 93.6 fL (83.0-100.0); Mean Platelet Volume 10.6 fL (9.4-12.4); Monocytes # 0.9 K/mcL (0.0-1.3); Monocytes % 10.8 %; Neutrophils # 5.8 K/mcL (1.6-8.9); Platelet Count 215 K/mcL (140-400); Red Blood Count 4.22 M/mcL (4.19-5.50); Segmented Neutrophils % 68.1 %; White Blood Count 8.5 K/mcL (4.3-11.1)
[2019-06-01] MEDS: *HR* OxyCODONE Immed Rel 5 MG TABLET PO PRN (08:16)
[2019-06-01] MEDS: Multivit/Ca/Min/Fe/FA 1 TAB TABLET PO SCH (08:17)
[2019-06-01] MEDS: Gabapentin 300 MG CAPSULE PO SCH (08:17)
[2019-06-01] MEDS: Aspirin Enteric Coated 81 MG Tablet PO SCH (08:18)
[2019-06-01] MEDS: Lisinopril 20 MG TABLET PO SCH (08:18)
[2019-06-01] MEDS: Ascorbic Acid 500 MG TABLET PO SCH (08:18)
[2019-06-01 10:54] VITALS: BP 137/73
== END 2019-06-01 11:55 | DRG 462 ==
LOC: SAMDAY 06:12 → 3NENU 12:42
PROVIDERS: ADMIT Orthopaedic Surgery; ATTEND Orthopaedic Surgery